=== PATIENT | male | born 1945 | race Caucasian/White ===

== ENCOUNTER 2020-08-21 15:53 | Emergency (ER) | payer BC, MEDICARE ==
[2020-08-21] MEDS ORDERED: Sodium Chloride 0.9% 10 ML Syringe FLUSH PRN (16:28)
[2020-08-21] MEDS ORDERED: Calcium Gluconate 10% 1 GM/10 ML SDV IVPUSH ONE (16:44)
[2020-08-21] MEDS ORDERED: Sodium Polystyrene Sulfonate 15 GM/60 ML Susp 60 ML Bot PO ONE (16:44)
--- NOTE | 2020-08-21 16:44 | EDM.PDOC ---
ED HPI GENERAL MEDICAL PROBLEM - General Chief Complaint: General Stated Complaint: SENT BY DOCTOR Time Seen by Provider: 08/21/20 16:28 Source of Information: Reports: Patient, Provider History Limitations: Reports: No Limitations - History of Present Illness INITIAL COMMENTS - FREE TEXT/NARRATIVE: The patient presents from home with abnormal lab values, shortness of breath, g eneralized weakness and occasional chest pain. He says this has been going on for about 8 to 9 months. He went and say Fer Theodore in our clinic and she did a CXR and labs. He went home. The labs were very abnormal. His Hgb was low at 4.5. His K was 5.9. His anion gap was elevated at 24.9. His BUN was 164. His creatinine was elevated at 17 with a GFR of 3. His magnesium was elevated at 2.6. His BNP was elevated at 6821. Some labs that were normal was his troponin which was normal and his lactic acid. Fer called the patient and he came back to the ER. He confirmed he has generalized weakness and shortness of breath. If he is walking around he has to stop and rest and he feels better. He says sometimes he may have some chest pain. He denies having any bloody stools or black stools. He still make urine and gave a sample at the clinic today. He has a pacemaker defibrillator. He also has had trouble with his kidneys in the past. His creatinine was 2.1. He has seen Dr Vu in the past. Dr Vu he said gave him a pill. The pill made his nose bleed so he stopped it. Onset: Gradual Duration: Week(s): Location: Reports: Chest Quality: Reports: Ache, Stabbing Improves with: Reports: None Worsens with: Reports: None Associated Symptoms: Reports: Chest Pain, Shortness of Breath. Denies: Confusion, Cough, Fever/Chills, Headaches, Nausea/Vomiting - Related Data Allergies Allergy/AdvReac Type Severity Reaction Status Date / Time No Known Allergies Allergy Verified 08/21/20 16:49 Home Meds: Home Meds Losartan [Cozaar] 50 mg PO DAILY 08/21/20 [History] Spironolactone [Aldactone] 25 mg PO DAILY 08/21/20 [History] carvediloL [Carvedilol] 25 mg PO DAILY 08/21/20 [History] Past Medical History - Infectious Disease History Infectious Disease History: Reports: Novel Coronavirus - Past Surgical History Cardiovascular Surgical History: Reports: AICD, Pacer Social & Family History - Tobacco Use Tobacco Use Status *Q: Former Tobacco User Used Tobacco, but Quit: Yes Month/Year Tobacco Last Used: 30years ago - Recreational Drug Use Recreational Drug Use: No ED ROS GENERAL - Review of Systems Review Of Systems: See Below Constitutional: Reports: No Symptoms, Weakness HEENT: Reports: No Symptoms Respiratory: Reports: Shortness of Breath. Denies: Cough Cardiovascular: Reports: Chest Pain Endocrine: Reports: No Symptoms GI/Abdominal: Reports: No Symptoms : Reports: No Symptoms Musculoskeletal: Reports: No Symptoms ED EXAM, GENERAL - Physical Exam Exam: See Below Exam Limited By: No Limitations General Appearance: Alert, No Apparent Distress Ears: Normal External Exam Nose: Normal Inspection Head: Atraumatic, Normocephalic Neck: Normal Inspection Respiratory/Chest: No Respiratory Distress, Lungs Clear, Normal Breath Sounds Cardiovascular: Regular Rate, Rhythm, No Edema, No Murmur GI/Abdominal: Soft, Non-Tender, No Organomegaly, No Mass Back Exam: Normal Inspection Extremities: Normal Inspection Course - Vital Signs Last Recorded V/S: Last Vital Signs Temp 97.4 F 08/21/20 19:10 Pulse 60 08/21/20 19:10 Resp 18 08/21/20 19:10 BP 148/61 H 08/21/20 19:10 Pulse Ox 100 08/21/20 19:10 - Orders/Labs/Meds Orders: Active Orders 24 hr Category Date Time Status EKG Documentation Completion [RC] ASDIRECTED Care 08/21/20 16:50 Active Peripheral IV Care [RC] . DIRECTED Care 08/21/20 16:28 Active RT Aerosol Therapy [RC] ASDIRECTED Care 08/21/20 16:46 Active CMP [COMPREHENSIVE METABOLIC PN,CMP] [CHEM] Stat Lab 08/21/20 20:24 Received RED BLOOD CELLS LP [BBK] Stat Lab 08/21/20 12:57 Results TYPE AND SCREEN [BBK] Stat Lab 08/21/20 12:57 Results Sodium Chloride 0.9% [Saline Flush] Med 08/21/20 16:28 Active 10 ml FLUSH ASDIRECTED PRN Peripheral IV Insertion Adult [OM.PC] Routine Oth 08/21/20 16:28 Ordered Transfuse Red Blood Cells [COMM] Stat Oth 08/21/20 16:29 Ordered EKG 12 Lead [EK] Stat Ther 08/21/20 16:49 Ordered Medication Orders Sodium Chloride (Sodium Chloride 0.9% 10 Ml Syringe) 10 ml FLUSH ASDIRECTED PRN PRN Reason: Keep Vein Open Last Admin: 08/21/20 16:34 Dose: 10 ml Documented by: SHOSHANA Labs: Laboratory Tests 08/21/20 08/21/20 Range/Units 12:57 17:26 SARS-CoV-2 RNA (GILA) Negative (NEGATIVE) Blood Type O NEGATIVE Gel Antibody Screen Negative Crossmatch See Detail Meds: Medications Generic Name Dose Route Start Last Admin Trade Name Freq PRN Reason Stop Dose Admin Sodium Chloride 10 ml 08/21/20 16:28 08/21/20 16:34 Sodium Chloride 0.9% 10 Ml Syringe FLUSH 10 ml ASDIRECTED PRN Administration Keep Vein Open Discontinued Medications Generic Name Dose Route Start Last Admin Trade Name Freq PRN Reason Stop Dose Admin Albuterol 2.5 mg 08/21/20 16:46 08/21/20 17:00 Albuterol 0.083% 2.5 Mg/3 Ml Neb Soln NEB 08/21/20 16:47 2.5 mg ONETIME ONE Administration Calcium Gluconate 1 gm 08/21/20 16:44 08/21/20 17:13 Calcium Gluconate 10% 1 Gm/10 Ml Sdv IVPUSH 08/21/20 16:45 1 gm ONETIME ONE Administration Dextrose/Water 50 ml 08/21/20 16:45 08/21/20 17:12 50% Dextrose In Water 50 Ml Syringe IVPUSH 08/21/20 16:46 50 ml ONETIME ONE Administration Insulin Human Regular 8 unit 08/21/20 16:45 08/21/20 17:14 Insulin Regular, Human 100 Units/Ml 3 Ml Vial SUBCUT 08/21/20 16:46 8 unit ONETIME ONE Administration Sodium Bicarbonate 50 meq 08/21/20 16:46 08/21/20 17:08 Sodium Bicarbonate 8.4% 50 Meq/50 Ml Syringe IVPUSH 08/21/20 16:47 50 meq ONETIME ONE Administration Sodium Polystyrene Sulfonate 45 gm 08/21/20 16:44 08/21/20 17:16 Sodium Polystyrene Sulfonate 15 Gm/60 Ml Susp 60 Ml Bot PO 08/21/20 16:45 45 gm NOW ONE Administration - Re-Assessments/Exams Free Text/Narrative Re-Assessment/Exam: 08/21/20 16:50 I ordered an IV saline lock, 2 units of PRBCs, kaexylate, calcium gluconate, sodium bicarb, D50 IV, insulin R 8 units subcutaneous, albuterol treatment and EKG. The patient at this time does not want to be admitted here or in [place]. I did explain that he could from this but he still said he is too busy. He did agree for us to give him blood and help get his potassium down. 08/21/20 19:31 The blood has been started for about a half hour. He still wants to go home. He is alert and orientated and he understands that he can from this. I will try again later to talk with him. 08/21/20 19:50 I wanted to do a rectal exam to see if he has blood in his stool and he did not want me to do that. 08/21/20 20:40 I talked to the patient again and told him he can from this. He says he understands but he has to much at home going on. I does agree to the second unit of blood. I will discharge him against medical advice. Departure - Departure Time of Disposition: 20:45 Disposition: Against Medical Advice 07 Condition: Serious Clinical Impression: Hyperkalemia Acute renal failure Qualifiers: Acute renal failure type: unspecified Qualified Code(s): N17.9 - Acute kidney failure, unspecified Anemia Qualifiers: Anemia type: other cause Other causes of anemia: other cause, not classified Qualified Code(s): D64.89 - Other specified anemias - Discharge Information *PRESCRIPTION DRUG MONITORING PROGRAM REVIEWED*: Not Applicable *COPY OF PRESCRIPTION DRUG MONITORING REPORT IN PATIENT MARYANNE: Not Applicable Referrals: Cornelio Sauceda MD [Ordering Only Provider] - 2 Days PCP,None [Primary Care Provider] - Pako Sutherland MD [Physician] - 1 Week Forms: ED Department Discharge Additional Instructions: You are very sick. Your kidneys are not working, your potassium is to high and you are anemic. You need to be admitted and sent to [place] where they have a kidney specialist. You could from either one of these problems within the n ext few days. You have chosen to go home against medical advice. Please return if you are worse. Follow up with the kidney specialist Dr Sauceda and your provider. Sepsis Event Note (ED) - Evaluation Sepsis Screening Result: No Definite Risk - Focused Exam Vital Signs: Vital Signs Temp Temp Pulse Resp BP Pulse Ox Pulse Ox 08/21/20 19:10 97.4 F 60 18 148/61 H 100 08/21/20 18:56 97.5 F 64 21 H 139/61 99 08/21/20 17:23 63 16 141/58 H 98 08/21/20 17:00 99 08/21/20 16:34 98.1 F 61 16 133/63 100 - My Orders Last 24 Hours: My Active Orders 08/21/20 12:57 RED BLOOD CELLS LP [BBK] Stat TYPE AND SCREEN [BBK] Stat 08/21/20 16:28 Peripheral IV Care [RC] . DIRECTED Sodium Chloride 0.9% [Saline Flush] 10 ml FLUSH ASDIRECTED PRN Peripheral IV Insertion Adult [OM.PC] Routine 08/21/20 16:29 Transfuse Red Blood Cells [COMM] Stat 08/21/20 16:46 RT Aerosol Therapy [RC] ASDIRECTED 08/21/20 16:49 EKG 12 Lead [EK] Stat 08/21/20 16:50 EKG Documentation Completion [RC] ASDIRECTED 08/21/20 20:24 CMP [COMPREHENSIVE METABOLIC PN,CMP] [CHEM] Stat - Assessment/Plan Last 24 Hours: My Active Orders 08/21/20 12:57 RED BLOOD CELLS LP [BBK] Stat TYPE AND SCREEN [BBK] Stat 08/21/20 16:28 Peripheral IV Care [RC] . DIRECTED Sodium Chloride 0.9% [Saline Flush] 10 ml FLUSH ASDIRECTED PRN Peripheral IV Insertion Adult [OM.PC] Routine 08/21/20 16:29 Transfuse Red Blood Cells [COMM] Stat 08/21/20 16:46 RT Aerosol Therapy [RC] ASDIRECTED 08/21/20 16:49 EKG 12 Lead [EK] Stat 08/21/20 16:50 EKG Documentation Completion [RC] ASDIRECTED 08/21/20 20:24 CMP [COMPREHENSIVE METABOLIC PN,CMP] [CHEM] Stat
[2020-08-21] MEDS ORDERED: 50% Dextrose in Water 50 ML Syringe IVPUSH ONE (16:45)
[2020-08-21] MEDS ORDERED: Insulin Regular, Human 100 Units/ML 3 ML Vial SUBCUT ONE (16:45)
[2020-08-21] MEDS ORDERED: Albuterol 0.083% 2.5 MG/3 ML Neb Soln NEB ONE (16:46)
[2020-08-21] MEDS ORDERED: Sodium Bicarbonate 8.4% 50 MEQ/50 ML Syringe IVPUSH ONE (16:46)
== END 2020-08-22 02:29 ==
LOC: EDBD → JD.ED 15:53 → MERGE 15:53 → JD.ED 08-22 02:29
DX: E87.5 Hyperkalemia (principal); N17.9 Acute kidney failure, unspecified; D64.89 Other specified anemias; R74.8 Abnormal levels of other serum enzymes; Z87.891 Personal history of nicotine dependence; Z20.822 Contact with and (suspected) exposure to COVID-19; Z79.899 Other long term (current) drug therapy
CPT/HCPCS: 36415; 36430; 80053; 86850; 86900; 86901; 86922; 87635; 93005; 94640; 96374; 96375; 99285; A9270; J0610; J1815; P9016; 99284; U0002